=== PATIENT | female | born 1960 | race Caucasian/White ===

== ENCOUNTER 2019-05-18 16:54 | Emergency (ER) | payer BC, OTHER ==
[2019-05-18 17:23] VITALS: BP 134/62
--- NOTE | 2019-05-18 17:43 | UC ---
Lower Extremity/Ankle HPI - HPI Summary HPI Summary: 58-year-old female who "stepped out of a truck the wrong way" and injured her left ankle approximately 4 days ago. She complains of pain and swelling to the medial aspect. She has been bearing weight. - History of Current Complaint Chief Complaint: UCLowerExtremity Stated Complaint: LT ANKLE PAIN Time Seen by Provider: 05/18/19 17:32 Hx Obtained From: Patient ?: No Onset/Duration: Sudden Onset Severity Initially: Moderate Severity Currently: Mild Pain Intensity: 5 Aggravating Factor(s): Ambulation Alleviating Factor(s): Nothing Able to Bear Weight: Yes - Allergies/Home Medications Allergies/Adverse Reactions: Allergies Allergy/AdvReac Type Severity Reaction Status Date / Time Penicillins Allergy Hives Verified 05/18/19 17:16 pseudoephedrine Allergy Swelling Verified 05/18/19 17:16 [From [facility]] Of Face,Lips,& Throat Sulfa (Sulfonamide Allergy Rash Verified 05/18/19 17:16 Antibiotics) Home Medications: Home Medications Levothyroxine TAB* [Synthroid TAB*] 50 mcg DAILY 05/18/19 [History Confirmed ] PMH/Surg Hx/FS Hx/Imm Hx Previously Healthy: Yes - Surgical History Surgical History: None - Family History Known Family History: Positive: Non-Contributory - Social History Lives: With Family Alcohol Use: None Substance Use Type: None Smoking Status (MU): Never Smoked Tobacco Review of Systems All Other Systems Reviewed And Are Negative: Yes Skin: Positive: Bruising, Other - Bruising and swelling to left medial ankle. Is Patient Immunocompromised?: No Physical Exam Triage Information Reviewed: Yes Appearance: Well-Appearing, No Pain Distress, Well-Nourished Vital Signs: Initial Vital Signs Temp 97.5 F 05/18/19 17:17 Pulse 72 05/18/19 17:17 Resp 16 05/18/19 17:17 BP 134/62 05/18/19 17:17 Pulse Ox 98 05/18/19 17:17 Vital Signs Reviewed: Yes Musculoskeletal: Positive: Strength Intact, ROM Intact, Other: - Patient has swelling and tenderness on palpation to the medial left ankle. Achilles is intact. Good peripheral pulses neuro sensation and capillary refill. Good range of motion. Lower leg is nontender Neurological Exam: Normal Psychological Exam: Normal Skin: Positive: Other - See above notes. Lower Extremity Course/Dx - Course Course Of Treatment: Left ankle x-ray:Indication: LEFT ankle pain and swelling following injury one week ago. Comparison: No relevant prior exams available on the [facility] PACS for comparison. Technique: AP, mortise, and lateral views LEFT ankle. REPORT AND IMPRESSION: #. Negative for fracture, osteochondral lesion, or articular malalignment. #. Soft tissue swelling most prominent over the medial aspect. #. Suggestion of talocrural joint effusion. An Jeffry bandage was applied. Patient's to follow-up with the orthopedist if any worsening symptoms, especially if the ankle feels like is going to give out while walking. The patient did not want to be put out of work because she just started a new job. - Differential Dx/Diagnosis Provider Diagnosis: Left ankle sprain Discharge ED - Sign-Out/Discharge Documenting (check all that apply): Patient Departure All imaging exams completed and their final reports reviewed: Yes - Discharge Plan Condition: Fair Disposition: HOME Patient Education Materials: Ankle Sprain (DC) Referrals: Lizabeth Gonzalez MD [Primary Care Provider] - Driss Hebert MD [Medical Doctor] - Additional Instructions: Elevate as much as possible and apply ice to the ankle. Tylenol for pain. Definite follow-up with the orthopedist if no improvement in 4 or 5 days. Ambulate as pain permits. - Billing Disposition and Condition Condition: FAIR Disposition: Home
== END 2019-05-18 18:07 | disposition home or self-care (01) ==
LOC: UCCORT 16:54
DX: S93.402A Sprain of unspecified ligament of left ankle, initial encounter (principal); V89.0XXA Person injured in unspecified motor-vehicle accident, nontraffic, initial encounter; Y92.9 Unspecified place or not applicable; Y93.89 Activity, other specified; Z88.0 Allergy status to penicillin; Z88.2 Allergy status to sulfonamides; Z88.8 Allergy status to other drugs, medicaments and biological substances
CPT/HCPCS: 99201; G0463